=== PATIENT | male | born 1970 | race Caucasian/White ===

== ENCOUNTER 2017-12-19 05:50 | Day surgery (SDC) | payer OTHER ==
[2017-12-19] VITALS (8 sets, daily range): BP systolic 114–131; BP diastolic 69–80
[~2017-12-19] VITALS: Ht 182.9 cm; Wt 93.4 kg
--- NOTE | 2017-12-19 06:20 | Anethesia Preoperative Eval ---
Anesthesia Pre-op PMH/ROS General Date of Evaluation: Dec 19, 2017 Time of Evaluation: 06:19 Anesthesiologist: abraham ASA Score: ASA 1 Mallampati Score Class I : Soft palate, uvula, fauces, pillars visible Class II: Soft palate, uvula, fauces visible Class III: Soft palate, base of uvula visible Class IV: Only hard plate visible Mallampati Classification: Class II Surgeon: venessa Diagnosis: colon polyps Surgical Procedure: colonoscopy w/ possible removal of polyps Anesthesia History: none Family History: no anesthesia problems Allergies: Coded Allergies: PENICILLINS (Verified Allergy, Severe, 12/19/17) DIFFICULTY BREATHING,CHILLS Medications: see eMAR Past Medical History Gastrointestinal/Genitourinary: Reports: other - history of colon polyps Anesthesia Pre-op Phys. Exam Physician Exam Constitutional: NAD Neurologic: CN 2-12 intact Cardiovascular: RRR Respiratory: CTA Gastrointestinal: S/NT/ND Airway Exam Mallampati Score: Class II MO: full Neck: supple TMD: 2fb ROM: full Teeth: intact Anesthesia Pre-op A/P Risk Assessment & Plan Assessment: asa1 Plan: mac Status Change Before Surgery: No Pre-Antibiotics Drug: Edelmira Perez MD Dec 19, 2017 06:20
[2017-12-19] MEDS ORDERED: NKM (06:27)
[2017-12-19] MEDS ORDERED: Midazolam 2mg/2ml Inj IVP PRN (06:30)
[2017-12-19] MEDS ORDERED: fentaNYL 100 mcg/2 mL IV PRN (06:30)
[2017-12-19] MEDS ORDERED: DiphenhydrAMINE 50mg/ml Inj IVP PRN (06:30)
[2017-12-19] MEDS ORDERED: Atropine Inj 1mg/10ml Syr IV PRN (06:30)
[2017-12-19] MEDS ORDERED: Glycopyrrolate 0.2mg/ml 1ml Vial ONE (07:00)
[2017-12-19] MEDS ORDERED: Propofol 200mg/20ml IV ONE (07:00)
[2017-12-19] MEDS ORDERED: Lidocaine 1% MPF 10mg/ml 5ml ONE (07:00)
[2017-12-19] MEDS ORDERED: NS Irrig 1000ml ONE (07:00)
[2017-12-19] MEDS ORDERED: LR 1000ml 1,000 ML IVLG SCH (07:00)
--- NOTE | 2017-12-19 07:10 | Pre-Procedure Note/Attestation ---
Pre-Procedure Note/Attestation Complete Prior to Procedure Planned Procedure: not applicable Procedure Narrative: colon Indications for Procedure Pre-Operative Diagnosis: h/o polyp, FH of CA Attestation I attest that I discussed the nature of the procedure; its benefits; risks and complications; and alternatives (and the risks and benefits of such alternatives ), prior to the procedure, with the patient (or the patient's legal technical sales representatives). I attest that, if there was a reasonable possibility of needing a blood transfusion, the patient (or the patient's legal technical sales representatives) was given the [facility] standardized written summary, pursuant to the Horace Chuy Blood Safety Act ([place] Health and Safety Code # 1645, as amended). I attest that I re-evaluated the patient just prior to the surgery and that there has been no change in the patient's H&P, except as documented below: Andry Sanon MD Dec 19, 2017 07:10
--- NOTE | 2017-12-19 08:53 | Immediate Post-Op Evaluation ---
Immediate Post-Op Evalulation Immediate Post-Op Evalulation Procedure: colonoscopy w/ bx Date of Evaluation: Dec 19, 2017 Time of Evaluation: 08:17 IV Fluids: 350ml 0.9ns Blood Products: none Estimated Blood Loss: negligible Blood Pressure Systolic: 118 Blood Pressure Diastolic: 79 Pulse Rate: 75 Respiratory Rate: 18 O2 Sat by Pulse Oximetry: 99 Temperature (Fahrenheit): 97.8 Pain Score (1-10): 0 Nausea: No Vomiting: No Complications none Patient Status: awake, reacts, patent Hydration Status: adequate Drug: Edelmira Perez MD Dec 19, 2017 08:53
--- NOTE | 2017-12-19 08:55 | 48 Hour Post Anesthesia Eval ---
Post Anesthesia Evaluation Procedure: colonoscopy w/ bx Date of Evaluation: Dec 19, 2017 Time of Evaluation: 08:19 Blood Pressure Systolic: 117 0: 76 Pulse Rate: 74 Respiratory Rate: 18 Temperature (Fahrenheit): 97.8 O2 Sat by Pulse Oximetry: 99 Airway: patent Nausea: No Vomiting: No Pain Intensity: 0 Hydration Status: adequate Cardiopulmonary Status: stable Mental Status/LOC: patient returned to baseline Post-Anesthesia Complications: none Follow-up care needed: N/A Edelmira Adkins MD Dec 19, 2017 08:55
--- NOTE | 2017-12-19 12:46 | Endoscopy Procedure Note ---
Endoscopy Procedure Note General Indication for Procedure: h/o polyp, FH of CA Procedures Performed: colonoscopy Operative Findings/Diagnosis: 3 polyps, rare tics Specimen: yes Pt Tolerated Procedure Well: Yes Estimated Blood Loss: none Anesthesia Anesthesiologist: see report Anesthesia: MAC Medications Medication Given: see anesthesia record Inserted Devices Implant(s) used?: No GI Core Measures 50 yrs or older w/o bx or poly: No 10yrs. F/U not recommended: No If not recommended, why?: Above average risk 10 yrs. F/U needed: No 18 years or older w/prev. colo: Yes <3yrs. since last colonoscopy: No Med reason:<3 yrs.: System Reason:<3 yrs.: Last colonoscopy >= to 3yrs: Yes Andry Sanon MD Dec 19, 2017 12:46
--- NOTE | 2017-12-19 12:47 | Brief Operative Note ---
Immediate Post Operative Note Operative Note Chief Complaint: h/o polyp Pre-op Diagnosis: h/o polyp, FH of CA Procedure: olon, polyp , bx Post-op Diagnosis: 3 polyps Surgeon: venessa Anesthesiologist: jama damon Anesthesia: MAC Specimen: yes Complications: none Condition: stable Fluids: recorded Drains: none Implant(s) used?: No Andry Sanon MD Dec 19, 2017 12:47
--- NOTE | 2017-12-20 19:31 | Procedure Note ---
DATE OF PROCEDURE: 12/19/2017 PROCEDURE: Colonoscopy with biopsy and snare polypectomy. SURGEON: Andry Sanon M.D. ANESTHESIA: Please see the separate anesthesiologist notes for details. PRE-ENDOSCOPIC DIAGNOSES: 1. History of colonic polyps. 2. Family history of colon cancer. POST-ENDOSCOPIC DIAGNOSES: 1. Diminutive polyps next to the appendiceal orifice status post biopsy removal. 2. Diminutive pedunculated polyp in the distal transverse colon, status post hot snare polypectomy. 3. Diminutive polyp in the sigmoid colon at 30 cm status post biopsy removal. 4. Rare diverticulosis. PROCEDURE: The procedure, its risks, indications, alternatives, and possible complications including, but not limited to bleeding, infection, perforation, , and anesthesia complications were explained to the patient and informed consent was obtained. Rectal exam was done and then the colonoscope was introduced into the rectum and advanced to the cecum without difficulty. The cecum was identified by the appearance of the ileocecal valve. The colonoscope was then gradually withdrawn and the mucosa examined carefully. Examination of the colonic mucosa revealed the above findings and above polypectomies. Specifically, there was a diminutive polyp, just next to the appendical orifice, which was approximately 4 mm in diameter. Because of the possibility of the appendical orifice, extra care exercised and carefully excising the polyp by biopsy forceps in a piecemeal fashion. There was no evidence of perforation and the polyp appeared to be completely removed. The patient was sent to recovery in good condition. COMPLICATIONS: None. RECOMMENDATIONS: 1. Follow up biopsy results. 2. Outpatient followup. 3. Repeat colonoscopy in 1 year to better evaluate the periappendiceal polyp for any residual tissue. Thank you for asking me to participate in care of this patient. Andry Sanon M.D. DR: ZAHRA JOB#: [id number] CC: Andry Sanon M.D.; Fax#: [phone] [facility]
== END 2017-12-19 10:15 | disposition home or self-care (01) ==
LOC: GAS 05:50
DX: K63.5 Polyp of colon (principal); D12.0 Benign neoplasm of cecum; D12.5 Benign neoplasm of sigmoid colon; D12.3 Benign neoplasm of transverse colon; Z80.0 Family history of malignant neoplasm of digestive organs; K57.90 Diverticulosis of intestine, part unspecified, without perforation or abscess without bleeding; Z88.0 Allergy status to penicillin
CPT/HCPCS: 45380; 45384; J2704; 94003; 94150